=== PATIENT | female | born 1960 | race Caucasian/White ===

== ENCOUNTER 2019-07-28 09:23 | Emergency (ER) | payer OTHER, SELFPAY ==
[2019-07-28 09:25] VITALS: BP 167/82; PULSE 88; RESP 17; TEMP 36.2; O2SAT 99; BMI 34.0
[2019-07-28 10:00] LABS: Bedside Glucose 362 mg/dL (70-110)
--- NOTE | 2019-07-28 10:02 | EKG12_ITS ---
Test Reason : CHEST TIGHTNESS Blood Pressure : / mmHG Vent. Rate : 083 BPM Atrial Rate : 083 BPM P-R Int : 122 ms QRS Dur : 082 ms QT Int : 374 ms P-R-T Axes : 046 002 044 degrees QTc Int : 439 ms Normal sinus rhythm Normal ECG Confirmed by AMBER YUN, SANJUANITA ([id number]), graphic editor DAPHNE KEYES ([id number]) on 07/30/2019 11:30:10 AM Referred By: MING Confirmed By:SANJUANITA CLARK MD
--- NOTE | 2019-07-28 10:02 | RAD_ITS ---
STUDY: X-RAY CHEST REASON FOR EXAM: Female, 58 years old. TECHNIQUE: 2 views COMPARISON: None. FINDINGS: The lungs are clear and expanded. There is no demonstrated pleural abnormality. Normal size heart. Normal mediastinum and jessica. Normal visualized pulmonary arteries. Normal visualized aortic arch and descending thoracic aorta. Normal visualized thoracic spine. Normal visualized ribs, clavicles, and shoulders. There is no demonstrated abnormality of the visualized soft tissue structures of the upper abdomen. RAD/Chest PA and Lateral IMPRESSION: Normal x-ray examination of the chest. Electronically Signed: Paula Rodríguez, at 10:54 EST Tel , Service support ,
--- NOTE | 2019-07-28 10:03 | ED.DCSUM_ITS ---
History of Present Illness Chief Complaint: Hyperglycemia Informant: Patient, Friend Onset: Today Narrative: Patient is a 58-year-old female with history of mitral valve prolapse, endocarditis insulin-dependent diabetes mellitus presented with confusion and hypoglycemia. Patient states she had cinnamon raisin toast this morning for breakfast. She checked her blood sugar and it was 518. She took 8 units of her fast acting insulin 30. She then took another 10 units of insulin. Her blood sugar was down to 438. Work states that she seemed very out of it and confused. Patient states while this was going on she was having very significant chest pressure. Patient states she also had a headache. Her symptoms have since resolved. Patient states she took her normal Lantus last night. She notes that she has been having some dysuria and increased frequency of urination for the past few weeks. Patient denies associated nausea, sweating, falls, difficulty breathing or abdominal pain. She denies any other complaints at this time. Past Medical History - Allergies and Home Meds Allergies/Adverse Reactions: Allergies simvastatin Allergy (Verified 07/28/19 09:29) Other [facility] Primary Care Physician: Jose Hernández [Primary Care Provider] - Past Medical History: - - MVP, IDDM, endocarditis Surgical History: noncontributory Smoking Status: Former smoker Review of Systems General: Denies: Chills, Fever, Sweats Eyes: Denies: Visual changes - bilaterally, Diplopia ENT: Denies: Rhinorrhea, Sore throat Cardiovascular: Denies: Chest pain, Palpitations Respiratory: Denies: Dyspnea, Cough, Dyspnea on exertion Gastrointestinal: Denies: Abdominal pain, Nausea, Vomiting, Diarrhea, Melena, Hematochezia Genitourinary: Denies: Dysuria, Hematuria, Frequency Musculoskeletal: Denies: Back pain, Extremity Pain Skin: Denies: Rash, Wounds Neurological: Reports: Headache, - - confusion . Denies: Weakness, Numbness Endocrine: Reports: Polyuria Physical Exam Vital Signs/Narrative: Vital Signs Temp Pulse Resp BP Pulse Ox 07/28/19 09:25 97.2 F L 88 17 167/82 H 99 Inital Vital Signs reviewed: Yes General: Well nourished, Well developed, No Acute Distress Head: Normocephalic, Atraumatic Eyes: Perrl, EOMI ENT: Moist mucous membranes, No rhinorrhea Neck: Supple, Nontender Cardiovascular: Regular rate, Regular rhythm, Murmur Respiratory: No distress, CTA bilaterally, Chest nontender Abdomen: Soft, Nontender, Nondistended, Normal bowel sounds Back: Nontender, Normal Inspection Extremities: Nontender, No edema Skin: Normal color, No rash Neurological: Alert, Oriented x3, Cranial nerves II-XII grossly intact, Normal Strength, Normal Sensation, - - NIH=0. Negative for: Confused, Disoriented, Weakness Psychological: Normal affect, Normal Mood Diagnostic/Tx/Re-eval Chest X-Ray - ED: 2 View, Read by ED Physician, Read by Radiologist, No Acute Disease Clinical Impression(s) from Imaging Studies Chest X-Ray 07/28/19 10:02 IMPRESSION: Normal x-ray examination of the chest. Electronically Signed: Paula Irahetamarjorie, at 10:54 EST Tel , Service support , Laboratory Data 07/28/19 07/28/19 07/28/19 09:49 10:10 10:10 WBC 8.5 RBC 4.81 Hgb 13.4 Hct 40.0 MCV 83.2 MCH 27.9 MCHC 33.5 RDW Std Deviation 39.5 RDW Coeff of Angela 13.2 Plt Count 248 MPV 10.6 Immature Gran % (Auto) 0.200 Neut % (Auto) 59.6 Lymph % (Auto) 30.8 Centre % (Auto) 7.1 Eos % (Auto) 1.8 Baso % (Auto) 0.5 Absolute Neuts (auto) 5.1 Absolute Lymphs (auto) 2.61 Nucleated RBC % 0 Sodium 138 Potassium 3.8 Chloride 105 Carbon Dioxide 27.0 Anion Gap 6 BUN 9 Creatinine 0.83 Estim Creat Clear Calc 60.37 Est GFR (MDRD) Af Amer 90 Est GFR (MDRD) Non-Af 74 BUN/Creatinine Ratio 10.8 Glucose 376 H Calcium 9.0 Troponin I < 0.015 Urine Color Urine Clarity Urine pH Ur Specific Russell Urine Protein Urine Glucose (UA) Urine Ketones Urine Occult Blood Urine Nitrite Urine Bilirubin Urine Urobilinogen Ur Leukocyte Esterase Urine RBC Urine WBC Ur Squamous Epith Cells Urine Bacteria Urine Mucus Acetone Level POC Glucose 362 H 07/28/19 07/28/19 10:10 11:00 WBC RBC Hgb Hct MCV MCH MCHC RDW Std Deviation RDW Coeff of Angela Plt Count MPV Immature Gran % (Auto) Neut % (Auto) Lymph % (Auto) Centre % (Auto) Eos % (Auto) Baso % (Auto) Absolute Neuts (auto) Absolute Lymphs (auto) Nucleated RBC % Sodium Potassium Chloride Carbon Dioxide Anion Gap BUN Creatinine Estim Creat Clear Calc Est GFR (MDRD) Af Amer Est GFR (MDRD) Non-Af BUN/Creatinine Ratio Glucose Calcium Troponin I Urine Color Yellow Urine Clarity Sl. Cloudy Urine pH 6.0 Ur Specific Russell 1.010 Urine Protein Negative Urine Glucose (UA) 1000 H Urine Ketones 5 H Urine Occult Blood Negative Urine Nitrite Negative Urine Bilirubin Negative Urine Urobilinogen Normal Ur Leukocyte Esterase Negative Urine RBC 0 SEEN Urine WBC 0 SEEN Ur Squamous Epith Cells 0-5 SEEN Urine Bacteria 0 SEEN Urine Mucus 0 SEEN Acetone Level NEGATIVE POC Glucose - Rhythm Strip Rhythm Strip: Sinus Rhythm Rate: 83 Ectopy: None - EKG Initial EKG Interpretation: Sinus Rhythm, - - Normal sinus rhythm at a rate of 83 Normal intervals Normal axis Normal ST segments Compared to prior EKG on 02/22/2010 patient has normalization of her ND interval - Medical Decision Making Patient is evaluated for hyperglycemia and episode of not feeling her self/acting strangely. Patient is back to her baseline. She had a glucose of 500 prior to arrival but treated with insulin. Glucose now is in the 300s. She has negative acetone and normal anion gap. She is given IV fluids. CXR normal. No signs of infection/UTI. Normal neurologic exam and no focal neuro deficit or signs/symptoms of stroke or encephalitis. BMP and CBC otherwise normal. Patient has a normal evaluation and is feeling better she will be discharged home. Patient is counseled on signs and symptoms requiring return to the emergency room. Patient verbalizes agreement and understand this plan. Patient discharged home in stable and improved condition. ED Disposition - Plan for ED Patient: Disposition: Home or Assisted Living Diagnosis: Hyperglycemia, Confusion Instructions: ED Diabetic Hyperglycemia Referrals: Jose Hernández [Primary Care Provider] - Additional Instructions: Take your normal insulin tonight. Call you PCP for follow up.
[2019-07-28 10:27] LABS: Absolute Lymphocyte Count 2.61 X10^3/uL (0.83-4.51); Absolute Neutrophil Count 5.1 X10^3/uL (2.0-7.7); Basophil# 0.04 X10^3/uL; Basophil% 0.5 % (0-1); Eosinophil# 0.15 X10^3/uL; Eosinophils% 1.8 % (0-5); Hemoglobin 13.4 g/dL (12.0-15.0); Lymphocyte # 2.61 X10^3/ul (4.0); Lymphocyte % 30.8 % (19-41); Mean Corp Hgb Conc 33.5 g/dL (32-36); Mean Corpuscular Hgb 27.9 pg (27.0-32.0); Mean Corpuscular Volume 83.2 fL (81-99); Mean Platelet Vol. 10.6 fl (6.2-12.0); Monocyte% 7.1 % (0-10); NRBC Flagged by Analyzer 0 % (0-5); Neutrophil # 5.05 X10^3/uL (2.7-7.7); Neutrophil % 59.6 % (47-70); Platelet Count 248 K/mm3 (150-450); RBC Distribution Width CV 13.2 % (11.6-14.6); RBC Distribution Width SD 39.5 fl (35.1-43.9); Red Blood Count 4.81 M/mm3 (4.2-5.4); White Blood Count 8.5 K/mm3 (4.4-11.0)
[2019-07-28 10:50] LABS: Anion Gap 6 (5-15); BUN 9 mg/dL (7-18); BUN/Creat Ratio 10.8 RATIO (10-20); Chloride 105 mmol/L (98-107); Creatinine, Serum 0.83 mg/dL (0.55-1.02); EST Glomerular Filtration Rate 74 mL/min (>60); Est Glom Filt Rate - Afr Amer 90 mL/min (>60); Estimated Creatinine Clearance 60.37 ml/min; Glucose 376 mg/dL (74-106); Potassium 3.8 mmol/L (3.5-5.1); Sodium Level 138 mmol/L (136-145)
[2019-07-28] MEDS: 0.9% Normal Saline 1,000 ML 1000 ML IV (11:00)
[2019-07-28 11:11] LABS: Bacteria 0 SEEN /hpf (None Seen); Mucous, Urine 0 SEEN /hpf (<or=2+); Red Blood Cells-Urine 0 SEEN /hpf (0-5); White Blood Cells 0 SEEN /hpf (0-5)
[2019-07-28 11:17] LABS: Color, Urine Yellow (Yellow); Glucose, Dipstick 1000 mg/dl (Normal); Ketone-Dipstick 5 mg/dl (Negative); Leukocyte Esterase-Dipstick Negative /ul (Negative); Nitrite-Dipstick Negative (Negative); Occult Blood-Urine Negative /ul (Negative); Protein-Dipstick Negative (Negative); Urine Bilirubin Dipstick Negative (Negative); Urine Clarity Sl. Cloudy (Clear); Urine Urobilinogen Normal (Normal)
[2019-07-28 11:21] VITALS: BP 128/68; PULSE 78; RESP 18; O2SAT 98
[2019-07-28 11:25] LABS: Squamous Epithelial Cells - UA 0-5 SEEN /hpf (5-10)
[2019-07-28 13:11] VITALS: BP 161/79; PULSE 102; RESP 18; O2SAT 98
== END 2019-07-28 13:16 | disposition home or self-care (01) ==
PROVIDERS: Emergency Provider Emergency Medicine; Family Provider Family Medicine; PCP Family Medicine
DX: R41.0 Disorientation, unspecified (principal); E11.65 Type 2 diabetes mellitus with hyperglycemia; Z87.891 Personal history of nicotine dependence; I34.1 Nonrheumatic mitral (valve) prolapse; Z79.4 Long term (current) use of insulin
CPT/HCPCS: 71046; 80048; 81001; 82009; 82962; 84484; 85025; 93005; 96360; 99284; J7030; A4216

== ENCOUNTER 2021-01-25 09:22 | Observation (INO) | payer OTHER, SELFPAY ==
[2021-01-25] VITALS (9 sets, daily range): BP systolic 139–185; BP diastolic 65–103; PULSE 72–87; RESP 14–21; TEMP 36.1–36.7; O2SAT 97–100; BMI 34.7; BMI 34.0
--- NOTE | 2021-01-25 09:41 | EKG12_ITS ---
Test Reason : CP Blood Pressure : / mmHG Vent. Rate : 079 BPM Atrial Rate : 079 BPM P-R Int : 114 ms QRS Dur : 080 ms QT Int : 392 ms P-R-T Axes : 047 005 072 degrees QTc Int : 449 ms Normal sinus rhythm Nonspecific T wave abnormality Abnormal ECG Confirmed by AMBER YUN, SANJUANITA ([id number]), editor publications LILY MARTINEZ ([id number]) on 01/27/2021 11:20:45 AM Referred By: BROOKE Confirmed By:SANJUANITA CLARK MD
--- NOTE | 2021-01-25 09:41 | RAD_ITS ---
STUDY: X-RAY CHEST REASON FOR EXAM: Female, 60 years old. Chest pain TECHNIQUE: Single AP portable view of the chest. COMPARISON: Comparison is made with prior study dated 07/28/2019. FINDINGS: EKG electrodes are seen. The lungs are clear and expanded. There is no demonstrated pleural abnormality. Normal size heart. Normal mediastinum and jessica. Normal visualized pulmonary arteries. There is atherosclerotic calcification of the aortic arch with tortuosity. Normal visualized thoracic spine. Normal visualized ribs, clavicles, and shoulders. Small hiatal hernia. RAD/Chest 1 View (Portable) IMPRESSION: No acute abnormalities present. Electronically Signed: Torey Vogt MD at 10:40 EDT , Service support ,
--- NOTE | 2021-01-25 09:42 | EX.ED.DYSGE1 ---
HPI History of Present Illness Chief Complaint: Hyperglycemia Informant: patient Onset/Context/Timing Onset: Today Context: Gradual Onset Current Severity: Mild Maximum Severity: Moderate Narrative Narrative: Patient presents secondary to hyperglycemia and chest pain. Patient states she was at work this morning when she started not feeling well. She describes feeling lightheaded, sweaty, developed left upper chest pain. She states she will feel similar when her blood sugar is too high. The battery in her meter is not working and she was unable to check her blood sugar. She did go ahead and take 10 units of fast working insulin which normally she would only take 8. Patient states typically those symptoms will subside but today they persisted for longer than normal. EMS was called. Patient also reports an episode when she was outside working 2 days ago. [facility] Medical History Diabetes GERD (gastroesophageal reflux disease) Home Medications insulin glargine 53 unit SQ QHS 07/28/19 [History Last Taken Unknown] insulin lispro 6 units SQ TIDCM 07/28/19 [History Last Taken Unknown] lisinopril 20 mg PO DAILY 07/28/19 [History Last Taken Unknown] omeprazole 40 mg PO DAILY 07/28/19 [History Last Taken Unknown] Allergy/AdvReac Type Severity Reaction Status Date / Time simvastatin Allergy Other Verified 07/28/19 09:29 Surgical History History of cholecystectomy Social History Smoking Status: Former smoker ROS ROS ED Constitutional Constitutional ED: Denies chills or fever(s) Eyes Eyes: Denies change in vision ENT ENT ED: Denies sore throat Cardiovascular Cardiovascular: Reports chest pain Respiratory/Chest Respiratory/Chest: Reports dyspnea; Denies cough Gastrointestinal Gastrointestinal: Reports nausea; Denies abdominal pain, diarrhea or vomiting Genitourinary Genitourinary ED: Denies dysuria Musculoskeletal Musculoskeletal: Denies back pain Integumentary Denies rash Neurologic Neurologic: Reports headache(s) and weakness Psychiatric Psychiatric: Denies anxiety or depression Endocrine Endocrinology: Denies polydipsia or polyuria Allergic/Immunologic Allergic/Immunologic ED: Denies urticaria EXAM Physical Exam Const Vital Signs: 01/25/21 09:24 05/25/21 09:36 01/25/21 09:58 Temperature 97.9 F Temperature Source Oral Pulse Rate 85 87 Respiratory Rate 21 H 16 Blood Pressure 185/103 H 140/65 H Blood Pressure Mean 130 90 Pulse Ox 98 98 Oxygen Delivery Method Room Air Room Air Room Air Positive well nourished and well developed General Appearance ED: well developed HEENT Reports normocephalic and head/scalp atraumatic Eyes PERRL and EOMs intact bilaterally Neck supple Chest Wall inspection of chest normal and palpation of chest normal Resp normal respiratory effort and clear to auscultation bilaterally Cardio regular rate and regular rhythm GI normal to inspection, nondistended, normoactive bowel sounds Palpation: soft Back/Spine no CVA tenderness Extremity normal to inspection Neuro oriented x3 and no sensory deficits noted Sensorium / Orientation: alert Motor Exam: strength 5/5 throughout Psych mental status grossly normal Skin no rashes or lesions noted MDM MDM MDM Narrative Medical decision making narrative: Patient did take 1 baby aspirin this morning. She is given 3 additional baby aspirin. Labs, EKG, chest x-ray are obtained. Lab Data Attestation: I reviewed the patient's lab results. Labs: Laboratory Results - last 24 hr 01/25/21 01/25/21 01/25/21 09:30 09:30 09:30 WBC 8.7 RBC 4.98 Hgb 14.1 Hct 41.5 MCV 83.3 MCH 28.3 MCHC 34.0 RDW Std Deviation 37.4 RDW Coeff of Angela 12.4 Plt Count 279 MPV 10.8 Immature Gran % (Auto) 0.500 Neut % (Auto) 62.3 Lymph % (Auto) 25.9 [place] % (Auto) 8.2 Eos % (Auto) 2.6 Baso % (Auto) 0.5 Absolute Neuts (auto) 5.4 Absolute Lymphs (auto) 2.25 Nucleated RBC % 0 D-Dimer Quant (PE/DVT) 0.34 Sodium 137 Potassium 3.9 Chloride 103 Carbon Dioxide 26.0 Anion Gap 8 BUN 9 Creatinine 0.84 Estim Creat Clear Calc 58.18 Est GFR (MDRD) Af Amer 88 Est GFR (MDRD) Non-Af 73 BUN/Creatinine Ratio 10.7 Glucose 362 H Calcium 9.1 Troponin I < 0.015 Radiography Chest X-Ray - ED: 1 View, Read by ED Physician, Normal, Heart, Lungs and Mediastinum EKG Initial EKG: Attestation: I personally reviewed and interpreted this EKG as follows: Interpretation: Sinus Rhythm (Sinus at [address] change.) Treatment and Re-Evaluation Comments:: On repeat evaluation patient is resting comfortably. Patient was initially significantly hypertensive with a systolic pressure of 200 for EMS and 185 on arrival. When I first evaluated the patient her systolic blood pressure was 140. At this time it is back up into the 170s. Blood sugar still elevated at 365. She will be given an additional 10 units of subcu insulin. Troponin and D-dimer are both negative at this time. With the patient's constitutional symptoms I do feel observation will be beneficial for cycling of cardiac enzymes and better control of her blood sugar and blood pressure. I will speak with the hospitalist. Discharge Plan Triage Chief Complaint: Hyperglycemia ED Provider: Laverne Gonzlaez Dx/Rx/DC Orders Clinical Impression: Chest pain, Hyperglycemia Prescriptions: No Action insulin glargine 100 UNIT/ML solution 53 unit SQ QHS RF: 0 lisinopril 20 MG tablet 20 mg PO DAILY RF: 0 omeprazole 40 MG capsule,delayed release(DR/EC) 40 mg PO DAILY RF: 0 insulin lispro 100 UNIT/ML insulin pen 6 units SQ TIDCM RF: 0 Primary Care Provider: Jose Hernández Referrals: Jose Hernández DO [Primary Care Provider] - Disposition Disposition: Acute Care Hospital [facility]
[2021-01-25 09:47] LABS: Absolute Lymphocyte Count 2.25 X10^3/uL (0.83-4.51); Absolute Neutrophil Count 5.4 X10^3/uL (2.0-7.7); Basophil# 0.04 X10^3/uL; Basophil% 0.5 % (0-1); Eosinophil# 0.23 X10^3/uL; Eosinophils% 2.6 % (0-5); Hematocrit 41.5 % (37-47); Hemoglobin 14.1 g/dL (12.0-15.0); Lymphocyte # 2.25 X10^3/ul (0.83-4.51); Lymphocyte % 25.9 % (19-41); Mean Corpuscular Hgb 28.3 pg (27.0-32.0); Mean Corpuscular Volume 83.3 fL (81-99); Mean Platelet Vol. 10.8 fl (6.2-12.0); Monocyte# 0.71 X10^3/uL; Monocyte% 8.2 % (0-10); NRBC Flagged by Analyzer 0 % (0-5); Neutrophil # 5.41 X10^3/uL (2.7-7.7); Neutrophil % 62.3 % (47-70); Platelet Count 279 K/mm3 (150-450); RBC Distribution Width CV 12.4 % (11.6-14.6); RBC Distribution Width SD 37.4 fl (35.1-43.9); Red Blood Count 4.98 M/mm3 (4.2-5.4); White Blood Count 8.7 K/mm3 (4.4-11.0)
[2021-01-25 09:55] LABS: D-Dimer Quantitative (DVT/PE) 0.34 FEU/ug/m (0.27-0.49)
[2021-01-25] MEDS: Aspirin 81 MG TAB.CHEW 243 MG PO (10:01)
[2021-01-25] MEDS: 0.9% Normal Saline 1,000 ML 150 ML IV ×2 (10:01→13:08)
[2021-01-25 10:06] LABS: Anion Gap 8 (5-15); BUN 9 mg/dL (7-18); BUN/Creat Ratio 10.7 RATIO (10-20); Calcium,Total 9.1 mg/dL (8.5-10.1); Chloride 103 mmol/L (98-107); Creatinine, Serum 0.84 mg/dL (0.55-1.02); EST Glomerular Filtration Rate 73 mL/min (>60); Est Glom Filt Rate - Afr Amer 88 mL/min (>60); Estimated Creatinine Clearance 58.18 ml/min; Glucose 362 mg/dL (74-106); Potassium 3.9 mmol/L (3.5-5.1); Sodium Level 137 mmol/L (136-145)
[2021-01-25] MEDS: Insulin Lispro 100 UNIT/ML INSULN.PEN 10 UNIT SC (10:40)
--- NOTE | 2021-01-25 11:11 | HP.PCM.HOS_ITS ---
HPI - General General Date of Admission: 01/25/21 HPI Narrative KIMO SHEN, is a 60 F who presented to the emergency department [facility] on 01/25/2021 with a chief complaint of chest pain. She reports that she had initial bout of chest pain while working outside in the yard on Sunday. She states that it was substernal and radiated to her left shoulder and was associated with some nausea and diaphoresis. She denies any associated vomiting or shortness of breath. She states at that time she took a break from her yard work and her symptoms subsided. Today she was at work this morning when she started not feeling well. She reported that she was lightheaded, diaphoretic and had left upper chest pain that radiated into her left shoulder again. She thought maybe her blood sugar was elevated. Unfortunately the battery in her glucometer was not working and she was unable to check her blood sugar at that time. She did take 10 units of bolus insulin at that time and came to the emergency department. Upon my evaluation she still complaining of some very mild substernal left-sided chest pain but no other associated symptoms. She has been a type II diabetic for an extended period of time. Vital signs in the emergency department are stable other than some uncontrolled hypertension. Her CBC is within normal limits. Her D-dimer is normal. Her BMP is normal other than an elevated blood sugar which was 362 on admission. She indicates she has had significant issues controlling her blood sugar since she turned 54. Her her diabetes is managed by her primary care physician. Her troponin was less than 0.015. Her EKG showed normal sinus rhythm without any ST-T wave changes. Her chest x-ray showed a small hiatal hernia but was otherwise normal. She'll be had admitted as an observation to PCU for chest pain. [facility] Medical History Diabetes GERD (gastroesophageal reflux disease) Home Medications insulin glargine 58 unit SQ QHS 07/28/19 [History Last Taken Unknown] insulin lispro 8 units SQ TIDCM 07/28/19 [History Last Taken Unknown] omeprazole 40 mg PO DAILY 07/28/19 [History Last Taken Unknown] Allergy/AdvReac Type Severity Reaction Status Date / Time simvastatin Allergy Other Verified 07/28/19 09:29 Family History (Updated 01/25/21 @ 11:[address] Tricia Delvalle DO) Other Diabetes Hypertension Surgical History History of cholecystectomy Social History Smoking Status: Former smoker ROS Review of Systems ROS Unobtainable: Denies due to encephalopathy, due to endotracheal tube, due to mental condition, due to mental status or other Constitutional Constitutional: Denies anorexia, change in weight, chills, fatigue, fever(s), malaise, night sweats, weakness or other Eyes Eyes: Denies blurry vision, change in eye color, change in vision, discharge from eye(s), double vision, erythema, eye pain, loss of vision or other ENT HEENT: Denies abnormal hearing, dysphagia, ear pain, epistaxis, headache(s), hearing loss, nasal congestion, nasal discharge, post nasal drip, sinus pressure, sore throat or other Cardiovascular Cardiovascular: Reports chest pain and lightheadedness; Denies claudication, dyspnea on exertion, edema, orthopnea, palpitations, paroxysmal nocturnal dyspnea, rapid heart rate, syncope or other Respiratory/Chest Respiratory/Chest: Denies cough, dyspnea, excessive phlegm production, hemoptysis, productive cough, shortness of breath at rest, shortness of breath with exertion, wheezing or other Gastrointestinal Gastrointestinal: Reports nausea; Denies abdominal pain, coffee ground emesis, constipation, diarrhea, dyspepsia, hematemesis, hematochezia, loose stools, melena, vomiting or other Genitourinary Genitourinary: Denies burning urination, difficulty urinating, dysuria, hematuria, nocturia, urinary frequency, urinary hesitancy, urinary incontinence, urinary urgency or other Musculoskeletal Musculoskeletal: Denies arthralgias, back pain, joint pain, joint stiffness, joint swelling, myalgias, neck pain or other Neurologic Neurologic: Denies abnormal gait, abnormal speech, confusion, disequilibrium, dizziness, focal weakness, headache(s), numbness, paresthesias, seizure-like activity, seizures, syncope, tingling, tremor(s) or other Psychiatric Psychiatric: Denies anxiety, depression, homicidal ideation, suicidal ideation or other Endocrine Endocrinology: Denies change in body appearance, cold intolerance, excessive sweating, heat intolerance, polydipsia, polyuria or other Hematologic/Lymphatic Hematologic/Lymphatic: Denies anemia, easy bleeding, easy bruising, lymphadenopathy or other Allergic/Immunologic Allergic/Immunologic: Denies rhinitis, hives, eczemia, asthma or other Vital Signs Vital Signs Vital Signs: 01/25/21 09:24 01/25/21 09:36 01/25/21 09:58 Temperature 97.9 F Temperature Source Oral Pulse Rate 85 87 Respiratory Rate 21 H 16 Blood Pressure 185/103 H 140/65 H Blood Pressure Mean 130 90 Pulse Ox 98 98 Oxygen Delivery Method Room Air Room Air Room Air 01/25/21 10:58 Temperature 97.2 F L Temperature Source Temporal Pulse Rate 78 Respiratory Rate 16 Blood Pressure 171/92 H Blood Pressure Mean 118 Pulse Ox 97 Oxygen Delivery Method Room Air Weight Weight: 89 kg Body Mass Index (BMI) 34.7 Physical Exam Const alert, oriented x3, no apparent distress, healthy appearing and well nourished Constitutional Narrative: Obese upper middle-aged white female sitting up in bed, appears comfortable General Appearance: cooperative; Negative for uncooperative Orientation / Consciousness: Negative for confused, disoriented or lethargic HEENT normocephalic, head/scalp atraumatic, hearing grossly normal bilaterally, moist oral mucous membranes, oropharynx normal and dentition normal HEENT Narrative: No thrush, Mallampati 2 Mouth: oral and palatal mucosa normal Eyes PERRL, EOMs intact bilaterally and conjunctivae normal Neck no lymphadenopathy, supple, no JVD and no carotid bruits Neck Narrative: Trachea midline Resp normal respiratory effort, no retractions, no use of accessory muscles and clear to auscultation bilaterally Auscultation: Negative for crackles, rales, rhonchi or wheezes Cardio regular rate, regular rhythm, S1 normal heart sound, S2 normal heart sound, no murmurs, no rub, no gallops, no clicks and no JVD GI normal to inspection, nondistended, normoactive bowel sounds, soft to palpation, non-tender and non-distended; Negative for hepatosplenomegaly Auscultation: Negative for hyperactive bowel sounds or hypoactive bowel sounds Palpation: Negative for tender, guarding or hernia Extremity normal to inspection and no clubbing, cyanosis or edema Peripheral Pulses: Yes pulses 2+ throughout Skin no rashes or lesions noted Neuro oriented x3, CN's II-XII intact bilaterally, moves all extremities and no focal motor deficits Neuro Narrative: Peripheral neuropathy noted left lower extremity Sensorium / Orientation: awake, alert, oriented to person, oriented to place and oriented to time Speech: speech normal Psych affect normal Lab / Micro Data Result Diagrams: 01/25/21 09:30 01/25/21 09:30 Labs: Laboratory Results - last 24 hr 01/25/21 01/25/21 01/25/21 09:30 09:30 09:30 WBC 8.7 RBC 4.98 Hgb 14.1 Hct 41.5 MCV 83.3 MCH 28.3 MCHC 34.0 RDW Std Deviation 37.4 RDW Coeff of Angela 12.4 Plt Count 279 MPV 10.8 Immature Gran % (Auto) 0.500 Neut % (Auto) 62.3 Lymph % (Auto) 25.9 [place] % (Auto) 8.2 Eos % (Auto) 2.6 Baso % (Auto) 0.5 Absolute Neuts (auto) 5.4 Absolute Lymphs (auto) 2.25 Nucleated RBC % 0 D-Dimer Quant (PE/DVT) 0.34 Sodium 137 Potassium 3.9 Chloride 103 Carbon Dioxide 26.0 Anion Gap 8 BUN 9 Creatinine 0.84 Estim Creat Clear Calc 58.18 Est GFR (MDRD) Af Amer 88 Est GFR (MDRD) Non-Af 73 BUN/Creatinine Ratio 10.7 Glucose 362 H Calcium 9.1 Troponin I < 0.015 Radiology Impression Chest X-Ray 01/25/21 09:41 IMPRESSION: No acute abnormalities present. Electronically Signed: Torey Vogt MD at 10:40 EDT , Service support , Assessment & Plan Assessment/Plan (1) Chest pain: (2) Hyperglycemia: PLAN: Chest pain -Patient has significant risk factors for cardiovascular disease -Daily aspirin -Cycle cardiac enzymes -Check lipids -Check hemoglobin A1c -Treadmill stress test in a.m. [id number] -Check hemoglobin A1c -Continue Lantus 58 units nightly -Continue lispro 8 units 3 times daily -SSI -Accu-Cheks before meals and at bedtime -Would recommend follow-up with endocrinology after discharge Elevated blood pressure -Patient is not on any medications for hypertension -We'll monitor here and initiate if she remains hypertensive GERD -Continue omeprazole Obesity -Recommend weight loss DVT prophylaxis -Lovenox -SCDs CODE STATUS -Full code Visit Charges Inpatient E&M: 02173 Init Hosp L2
--- NOTE | 2021-01-25 12:08 | EKG12_ITS ---
Test Reason : CP ADMIT Blood Pressure : / mmHG Vent. Rate : 080 BPM Atrial Rate : 080 BPM P-R Int : 126 ms QRS Dur : 078 ms QT Int : 386 ms P-R-T Axes : 051 000 078 degrees QTc Int : 445 ms Normal sinus rhythm Nonspecific ST and T wave abnormality Abnormal ECG Confirmed by JASIEL YUN, HARLAN ([id number]), newspaper or periodical editor LILY MARTINEZ ([id number]) on 01/27/2021 11:34:46 AM Referred By: PRETTY Confirmed By:HARLAN WEATHERS MD
[2021-01-25] MEDS: Enoxaparin 40 MG/0.4 ML Syringe SC (12:58)
[2021-01-25] MEDS: Insulin Lispro 100 UNIT/ML INSULN.PEN 8 UNIT SC ×2 (12:58→17:23)
[2021-01-25] MEDS: Acetaminophen 325 MG Tablet 650 MG PO (13:08)
[2021-01-25 13:10] LABS: Bedside Glucose 178 mg/dL (70-110)
[2021-01-25] MEDS: 0.9% Saline Lock 10 ML Syringe IV (13:13)
[2021-01-25 18:21] LABS: Bedside Glucose 142 mg/dL (70-110)
[2021-01-25 22:20] LABS: Bedside Glucose 203 mg/dL (70-110)
[2021-01-26 02:51] VITALS: PULSE 75
[2021-01-26 04:27] VITALS: BP 141/58; PULSE 75; RESP 18; TEMP 36.6; O2SAT 98
[2021-01-26] MEDS: Aspirin E.C. 81 MG Tablet PO (06:33)
[2021-01-26 06:41] LABS: Bedside Glucose 235 mg/dL (70-110)
[2021-01-26 06:49] LABS: AST(SGOT) 21 U/L (15-37); Alanine Aminotransfer ALT/SGPT 32 U/L (13-56); Albumin, Serum 3.2 g/dL (3.2-5.0); Alkaline Phosphatase 93 U/L (45-117); Anion Gap 6 (5-15); BUN 7 mg/dL (7-18); BUN/Creat Ratio 9.6 RATIO (10-20); Calcium,Total 8.4 mg/dL (8.5-10.1); Chloride 107 mmol/L (98-107); Cholesterol 217 mg/dL (200); Creatinine, Serum 0.73 mg/dL (0.55-1.02); EST Glomerular Filtration Rate 86 mL/min (>60); Est Glom Filt Rate - Afr Amer 104 mL/min (>60); Estimated Creatinine Clearance 64.01 ml/min; Globulin 3.6 g/dL (2.2-4.2); Glucose 186 mg/dL (74-106); High Density Lipoprotein 29 mg/dL; Potassium 3.7 mmol/L (3.5-5.1); Protein, Total 6.8 g/dL (6.4-8.2); Sodium Level 141 mmol/L (136-145); Thyroid Stim Hormone (TSH) 1.54 uIU/mL (0.358-3.74); Triglycerides 292 mg/dL; Very Low Density Lipoprotein 58 mg/dL (5-40)
[2021-01-26 06:57] VITALS: PULSE 78
[2021-01-26 07:25] VITALS: O2SAT 96
[2021-01-26 08:12] VITALS: BP 155/54; PULSE 76; RESP 20; TEMP 36.6; O2SAT 99
[2021-01-26 09:26] LABS: Hemoglobin A1c 9.8 % (3.8-5.6)
[2021-01-26 11:41] VITALS: BP 143/82; PULSE 86; RESP 16; TEMP 36.8; O2SAT 98
[2021-01-26] MEDS: Lisinopril 10 MG Tablet PO (11:52)
[2021-01-26] MEDS: Pantoprazole Sodium 40 MG Tablet PO (11:52)
[2021-01-26 12:00] LABS: Bedside Glucose 258 mg/dL (70-110)
--- NOTE | 2021-01-26 13:07 | STRESSREP ---
Stress Test Report Exercise my cardial perfusion stress test. 60-year-old lady with a history of chest pain. Stress protocol: Resting EKG demonstrates normal sinus rhythm with a rate of 72 bpm normal intervals are noted resting blood pressures 140/78 mmHg. The patient exercised according to regular Og protocol for total duration of 4 minutes and 30 seconds. The maximum heart rate attained was 144 bpm which was 90% of maximum predicted heart rate the maximum workload was 6.4 metabolic equivalents. At rest there were no ST or T wave changes noted to suggest ischemia and at peak exercise upsloping ST changes were noted which did not meet the criteria for ischemia. The final blood pressure was 154/82 with a peak blood pressure of 230/80 mmHg which was a hypertensive response to exercise. No chest pain was noted the test was terminated due to dyspnea. Myocardial perfusion protocol. 13.2 mCi of technetium 99m sestamibi was injected at rest. Patient exercised according to regular Og protocol for 4-1/2 minutes and at peak exercise 43.3 mCi of technetium 99m sestamibi was injected stress images were obtained stress and rest images were reconstructed and compared in the short axis vertical long and horizontal long axis. Gated images were also obtained. Perfusion SPECT analysis: Review of the stress images demonstrate normal uptake of tracer noted in all areas of the myocardium. The resting images similarly demonstrate normal uptake of tracer noted in all areas of the myocardium. No areas of reversibility are noted to suggest ischemia and no previous infarct is noted. Gated SPECT analysis: The gated ejection fraction is over 60%. Conclusion: Normal exercise myocardial perfusion stress test at a moderate workload. Preserved ejection fraction. Hypertensive response to exercise.
--- NOTE | 2021-01-26 13:22 | DS.PCM_ITS ---
Providers Date of Admission: 01/25/21 Primary Care Physician: Dr. Jose Hernández, Reason For Visit: CHEST PAIN, HYPERGLYCEMIA Diagnosis Discharge Diagnosis (1) Chest pain: Status: Acute Code(s): R07.9 - Chest pain, unspecified (2) HTN (hypertension): Status: Chronic Code(s): I10 - Essential (primary) hypertension (3) Hyperlipemia: Status: Acute Code(s): E78.5 - Hyperlipidemia, unspecified (4) Hypertriglyceridemia: Status: Acute Code(s): E78.1 - Pure hyperglyceridemia (5) DM (diabetes mellitus), type 2, uncontrolled: Status: Acute Code(s): E11.65 - Type 2 diabetes mellitus with hyperglycemia Medications at Discharge Home Medications insulin glargine 58 unit SQ QHS 07/28/19 insulin lispro 8 units SQ TIDCM 07/28/19 omeprazole 40 mg PO DAILY 07/28/19 aspirin 81 mg PO DAILY@0800 #0 tab 01/26/21 atorvastatin 40 mg PO QHS #30 tab 01/26/21 lisinopril 10 mg PO DAILY #30 tab 01/26/21 Hospital Course Summary of Care Provided Minutes Spent on Discharge: 26 Hospital Course: KIMO SHEN, is a 60 F who presented to the emergency department [facility] on 01/25/2021 with a chief complaint of chest pain.? She reports that she had initial bout of chest pain while working outside in the yard on Sunday.? She states that it was substernal and radiated to her left shoulder and was associated with some nausea and diaphoresis.? She denies any associated vomiting or shortness of breath.? She states at that time she took a break from her yard work and her symptoms? subsided.? On the day of admission she was at work in the morning when she started not feeling well.? She reported that she was lightheaded, diaphoretic and had left upper chest pain that radiated into her left shoulder again.? She thought maybe her blood sugar was elevated.? Unfortunately the battery in her glucometer was not working and she was unable to check her blood sugar at that time.? She did take 10 units of bolus insulin at that time and came to the emergency department.? Upon my initial evaluation she was still complaining of some very mild substernal left- sided chest pain but no other associated symptoms.? Vital signs in the emergency department were stable other than some uncontrolled hypertension.? Her CBC is within normal limits.? Her D-dimer is normal.? Her BMP is normal other than an elevated blood sugar which was 362 on admission.? She indicates she has had significant issues controlling her blood sugar since she turned 54.? Her troponin was less than 0.015 and remained negative with cycling.? Her EKG showed normal sinus rhythm without any ST-T wave changes.? Her chest x-ray showed a small hiatal hernia but was otherwise normal.? She'll was admitted as an observation to PCU for chest pain. As noted above her cardiac enzymes were cyc led and remained negative. Hemoglobin A1c was obtained and was 9.8. Lipids were total cholesterol 217, LDL 130, HDL 29, triglyceride level 292. Her TSH was within normal limits. A treadmill stress test was performed and showed normal exercise myocardial perfusion stress test with a moderate workload, and preserved ejection fraction at 60% and a hypertensive response to exercise. Given her lipids she was trialed on Lipitor. It is noted that she has a allergic reaction in the form of locked jaw with simvastatin but she was willing to give Lipitor try. Her blood pressure also remained elevated throughout her stay and given her diabetes she was initiated on lisinopril 10 mg. This may need uptitrated in follow-up. In addition to the lisinopril and the Lipitor she was started on a baby aspirin daily. She is to follow-up with her primary care care physician 1 week and was recommended given her uncontrolled hemoglobin A1c to follow-up with Dr. Nuñez from endocrinology as soon as possible. Discharge diagnoses Chest pain-resolved DM-2 uncontrolled Hypertension Hyperlipidemia Hypertriglyceridemia GERD Obesity Physical Exam Const alert, oriented x3, no apparent distress, healthy appearing and well nourished Constitutional Narrative: Obese upper middle-aged white female sitting up in a chair at the bedside, son is at bedside, appears comfortable, nontoxic General Appearance: cooperative, comfortable, well kempt and well developed; Negative for uncooperative Orientation / Consciousness: Negative for confused, disoriented or lethargic HEENT normocephalic, head/scalp atraumatic, hearing grossly normal bilaterally, moist oral mucous membranes, oropharynx normal and dentition normal Neck supple Neck Narrative: Trachea midline Resp normal respiratory effort, no retractions, no use of accessory muscles and clear to auscultation bilaterally Auscultation: Negative for crackles, rales, rhonchi or wheezes Cardio regular rate, regular rhythm, S1 normal heart sound, S2 normal heart sound, no murmurs, no rub, no gallops, no clicks and no JVD GI normal to inspection, nondistended, normoactive bowel sounds, soft to palpation, non-tender and non-distended; Negative for hepatosplenomegaly Auscultation: Negative for hyperactive bowel sounds or hypoactive bowel sounds Palpation: Negative for tender, guarding or hernia Extremity normal to inspection and no clubbing, cyanosis or edema Skin no rashes or lesions noted Neuro oriented x3, CN's II-XII intact bilaterally, moves all extremities and no focal motor deficits Neuro Narrative: Peripheral neuropathy noted left lower extremity Sensorium / Orientation: awake, alert, oriented to person, oriented to place and oriented to time Speech: speech normal ABG / Lab / Microbiology Data Result Diagrams: 01/25/21 09:30 01/26/21 06:00 Laboratory: Laboratory Results - last 24 hr 01/25/21 01/25/21 01/25/21 13:00 15:25 17:18 Sodium Potassium Chloride Carbon Dioxide Anion Gap BUN Creatinine Estim Creat Clear Calc Est GFR (MDRD) Af Amer Est GFR (MDRD) Non-Af BUN/Creatinine Ratio Glucose Hemoglobin A1c Calcium Total Bilirubin Direct Bilirubin AST ALT Alkaline Phosphatase Troponin I < 0.015 < 0.015 Total Protein Albumin Globulin Triglycerides Cholesterol LDL Cholesterol VLDL Cholesterol HDL Cholesterol TSH POC Glucose 142 H 01/25/21 01/26/21 01/26/21 21:29 06:00 06:00 Sodium 141 Potassium 3.7 Chloride 107 Carbon Dioxide 28.0 Anion Gap 6 BUN 7 Creatinine 0.73 Estim Creat Clear Calc 64.01 Est GFR (MDRD) Af Amer 104 Est GFR (MDRD) Non-Af 86 BUN/Creatinine Ratio 9.6 L Glucose 186 H Hemoglobin A1c 9.8 H Calcium 8.4 L Total Bilirubin 0.40 Direct Bilirubin 0.10 AST 21 ALT 32 Alkaline Phosphatase 93 Troponin I Total Protein 6.8 Albumin 3.2 Globulin 3.6 Triglycerides 292 H Cholesterol 217 H LDL Cholesterol 130 VLDL Cholesterol 58 H HDL Cholesterol 29 L TSH 1.54 POC Glucose 203 H 01/26/21 01/26/21 06:37 11:49 Sodium Potassium Chloride Carbon Dioxide Anion Gap BUN Creatinine Estim Creat Clear Calc Est GFR (MDRD) Af Amer Est GFR (MDRD) Non-Af BUN/Creatinine Ratio Glucose Hemoglobin A1c Calcium Total Bilirubin Direct Bilirubin AST ALT Alkaline Phosphatase Troponin I Total Protein Albumin Globulin Triglycerides Cholesterol LDL Cholesterol VLDL Cholesterol HDL Cholesterol TSH POC Glucose 235 H 258 H D/C Instructions Discharge Diet: Low fat / Low cholesterol and 1800 Calorie Control Diet Meaningful Use Info Meaningful Use Diagnoses (Choose all that apply): None applicable Discharge Plan Admission Admit Date/Time: 01/25/21 10:56 Primary Reason for Your Visit: Chest Pain Attending Provider: Tricia Delvalle Primary Care Provider: Jose Hernández Instructions Patient Instructions: ED Chest Pain, Noncardiac Discharge Orders/Prescriptions Prescriptions: New atorvastatin 40 mg Tablet 40 mg PO QHS Qty: 30 RF: 0 aspirin 81 mg Tablet,Delayed Release (Dr/Ec) 81 mg PO DAILY@0800 Qty: 0 RF: 0 lisinopril 10 mg Tablet 10 mg PO DAILY Qty: 30 RF: 1 Continued insulin glargine 100 UNIT/ML solution 58 unit SQ QHS RF: 0 omeprazole 40 MG capsule,delayed release(DR/EC) 40 mg PO DAILY RF: 0 insulin lispro 100 UNIT/ML insulin pen 8 units SQ TIDCM RF: 0 Referrals / Follow Up: Jose Hernández DO [Primary Care Provider] - (1 to 2 weeks) Everardo Nuñez MD [STAFF PHYSICIAN] - (Call for an appointment This is for diabetes management) Disposition Disposition (needs filled in before D/C Order can be placed): Home, self care Visit Charges Inpatient E&M: [id number] Disch Hosp
[2021-01-26] MEDS: Insulin Lispro 100 UNIT/ML INSULN.PEN 8 UNIT SC (13:49)
--- NOTE | 2021-01-26 14:41 | PCM.DC ---
Discharge Instructions Diet Discharge Diet: Low fat / Low cholesterol and 1800 Calorie Control Diet Follow Up Care Test Results: Test results from this visit will be discussed in further detail at your follow-up appointment, if applicable. Discharge Plan Admission Admit Date/Time: 01/25/21 10:56 Primary Reason for Your Visit: Chest Pain Attending Provider: Tricia Delvalle Primary Care Provider: Jose Hernández Instructions Patient Instructions: ED Chest Pain, Noncardiac Discharge Orders/Prescriptions Prescriptions: New atorvastatin 40 mg Tablet 40 mg PO QHS Qty: 30 RF: 0 aspirin 81 mg Tablet,Delayed Release (Dr/Ec) 81 mg PO DAILY@0800 Qty: 0 RF: 0 lisinopril 10 mg Tablet 10 mg PO DAILY Qty: 30 RF: 1 Continued insulin glargine 100 UNIT/ML solution 58 unit SQ QHS RF: 0 omeprazole 40 MG capsule,delayed release(DR/EC) 40 mg PO DAILY RF: 0 insulin lispro 100 UNIT/ML insulin pen 8 units SQ TIDCM RF: 0 Referrals / Follow Up: Jose Hernández DO [Primary Care Provider] - (1 to 2 weeks) Everardo Nuñez MD [STAFF PHYSICIAN] - (Call for an appointment This is for diabetes management) Disposition Disposition (needs filled in before D/C Order can be placed): Home, self care
--- NOTE | 2021-01-26 15:05 | PHA.DC.MC ---
Pharmacy Service has performed discharge medication reconciliation and counseling for this patient. 1. ATORVASTATIN 40MG PO QHS 2. ASPIRIN 81MG PO DAILY 3. LISINOPRIL 10MG PO DAILY The patient's discharge medication list was reviewed for discrepancies and discrepancies were resolved. Home Medications insulin glargine 58 unit SQ QHS 07/28/19 insulin lispro 8 units SQ TIDCM 07/28/19 omeprazole 40 mg PO DAILY 07/28/19 aspirin 81 mg PO DAILY@0800 #0 tab 01/26/21 atorvastatin 40 mg PO QHS #30 tab 01/26/21 lisinopril 10 mg PO DAILY #30 tab 01/26/21 The patient was counseled on the following discharge medications and changes in medications for homegoing were reviewed. The Reason for Use, instructions for use, and potential side effects were reviewed for all new medications. The patient's questions regarding all of their medications were answered. The patient was able to verbally demonstrate an understanding of their discharge medications.
== END 2021-01-26 13:27 | disposition home or self-care (01) ==
LOC: ED 10:34 → PCU 11:21
PROVIDERS: Admitting Provider Internal Medicine; Emergency Provider Emergency Medicine; PCP Family Medicine; Visit Provider Internal Medicine
DX: R07.89 Other chest pain (principal); E11.65 Type 2 diabetes mellitus with hyperglycemia; K44.9 Diaphragmatic hernia without obstruction or gangrene; E66.9 Obesity, unspecified; E78.5 Hyperlipidemia, unspecified; I10 Essential (primary) hypertension; K21.9 Gastro-esophageal reflux disease without esophagitis; Z79.4 Long term (current) use of insulin; Z79.899 Other long term (current) drug therapy; Z87.891 Personal history of nicotine dependence
CPT/HCPCS: 36415; 71045; 78452; 80048; 80061; 80076; 82962; 83036; 84443; 84484; 85025; 85379; 93005; 93017; 96360; 96361; 96372; 99218; 99285; A9500; J7030; A4216; G0378